=== PATIENT | female | born 1945 | race Caucasian/White ===

== ENCOUNTER → 2018-02-01 08:56 | Outpatient (CLI) | payer MEDICARE, OTHER, SELFPAY ==
[2018-02-01 14:10] LABS: Basophils % 0.4 % (0.1-2.0); Eosinophils # 0.1 K/mm3 (0.0-0.4); Eosinophils % 1.3 % (0.1-12.0); Hemoglobin 12.5 g/dL (12.2-16.2); Lymphocytes # 1.7 K/mm3 (0.7-4.5); Lymphocytes % 19.6 K/mm3 (10-50); Mean Corpuscular HGB Conc 29.9 g/dL (31.8-35.4); Mean Corpuscular Hemoglobin 27.2 pg (27.0-31.2); Mean Corpuscular Volume 90.9 fl (81-99); Mean Platelet Volume 8.6 fl (7.4-10.4); Monocytes # 0.6 K/mm3 (0.1-1.0); Monocytes % 6.3 % (1.7-9.3); Neutrophils # 6.4 K/mm3 (1.8-7.8); Neutrophils % 72.4 % (37.0-80.0); Platelet Count 280 K/mm3 (142-424); Red Blood Count 4.62 M/mm3 (4.20-5.40); Red Cell Distribution Width 15.4 % (11.5-17.5); White Blood Count 8.8 K/mm3 (4.8-10.8)
[2018-02-01 14:18] LABS: Hemoglobin A1C 7.6 % (0.0-7.0)
[2018-02-01 14:31] LABS: Alanine Aminotransferase 15 U/L (12-78); Albumin Level 3.4 gm/dL (3.4-5.0); Alkaline Phosphatase 91 U/L (46-116); Anion Gap 12.2 mEq/L (5-15); Aspartate Amino Transferase 16 U/L (15-37); Bilirubin,Total 0.5 mg/dL (0.2-1.0); Blood Urea Nitrogen 37 mg/dL (7-18); Calcium 9.2 mg/dL (8.5-10.1); Carbon Dioxide 31 mmol/L (21.0-32.0); Chloride 105 mmol/L (98-107); Chol/HDL Ratio 2.5 (1-3.5); Cholesterol 118 mg/dL (140-200); Creatinine,Serum 1.68 mg/dL (0.55-1.02); Estimated Glomerular Filt Rate 30 ml/min (>60); GFR (African American) 36 ML/MIN (>60); Globulin 3.4 gm/dl (1.3-3.2); Glucose 125 mg/dL (74-106); HDL Cholesterol 48 mg/dL (29-89); LDL Cholesterol 45 mg/dL (0-130); Potassium 4.2 mmoL/L (3.5-5.1); Sodium 144 mmol/L (136-145); Total Protein,Serum 6.8 gm/dL (6.4-8.2); Triglycerides 126 mg/dL (30-200); VLDL Cholesterol 25 mg/dL (0-40)
== END ==
PROVIDERS: PCP Internal Medicine Adolescent Medicine; Visit Provider Internal Medicine Adolescent Medicine
DX: N18.1 Chronic kidney disease, stage 1 (principal); E11.9 Type 2 diabetes mellitus without complications
CPT/HCPCS: 36415; 80053; 80061; 83036; 85025

== ENCOUNTER → 2018-06-17 09:01 | Outpatient (CLI) | payer MEDICARE, MEDICAID, SELFPAY ==
--- NOTE | 2018-06-17 09:06 | XR_ITS ---
XR DEXA axial skeleton HISTORY: ITS.REASON: POST MENOPAUSAL ORDERING PHYSICIAN: Sanket Molina MD PATIENT AGE: 73 years COMPARISON: 04/23/2011 FINDINGS: The BMD measured at the Right femoral neck is 0.779 g/cm squared with a T score of -1.9 . This is considered Osteopenic according to the World Health Organization criteria. Fracture risk is Moderate. Treatment is advised. The L1 L4 density has T score 2.4 which is increased by 13% compared to the previous study. The hip density has decreased by 16% compared with previous. There is severe sclerosis involving the interpedicular/facet region on the left at L3-L4. This could be arthritic in nature or due to blastic lesion. Plain films of the lumbar spine may be of further value IMPRESSION: 1. Osteopenia with moderate fracture risk. Treatment suggested. Recommend follow-up exam May 2020 2. Facet sclerosis versus blastic lesion of the pedicle at L1 3 on the left. Recommend lumbar spine films further evaluation
== END ==
PROVIDERS: Family Provider Internal Medicine Adolescent Medicine; PCP Internal Medicine Adolescent Medicine; Visit Provider Internal Medicine Adolescent Medicine
DX: Z13.820 Encounter for screening for osteoporosis (principal); Z78.0 Asymptomatic menopausal state
CPT/HCPCS: 77080

== ENCOUNTER → 2020-02-07 13:17 | Outpatient (CLI) | payer MEDICARE, MEDICAID, OTHER, SELFPAY ==
--- NOTE | 2020-02-07 | CA_ITS ---
APPROVED REPORT Bilateral Lower Extremity Venous Study for DVT. Placement Assistant: CT Indications Risk Factors Obesity Medications Aspirin Eliquis Vein Imaging CFV (R): compressive, spontaneous, phasic, augmentation SFJ (R): compressive, spontaneous, phasic, augmentation FEM (R): compressive, spontaneous, phasic, augmentation POP (R): compressive, spontaneous, phasic, augmentation DFV (R): compressive, spontaneous, phasic, augmentation PTV (R): compressive, spontaneous, phasic, augmentation GSV (R): compressive, spontaneous, phasic, augmentation SSV (R): Not Visualized Peroneals (R):Not Visualized GAS (R): compressive, spontaneous, phasic, augmentation Findings RLE negative for DVT/SVT. Vessels compressible. Difficult exam. Conclusion No evidence of DVT or superficial thrombophlebitis in the veins scanned of the right lower extremity. Mild subq edema Electronically signed by : Samir Borges MD 02/07/2020 20:17:26
--- NOTE | 2020-02-07 13:39 | XR_ITS ---
PROCEDURE: XR FOOT RT MIN 3V CLINICAL INDICATION: RT FOOT PAIN COMPARISON: No exams were available for comparison FINDINGS: No fracture or dislocation. No lytic or blastic change. There is normal mineralization. Osteoarthritic changes are present at the navicular cuneiform joint with subarticular cystic changes. There is mild osteoarthritis also of the metatarsal tarsal joints 1 through 5 and of the cuboid lateral cuneiform joint. There is a fairly prominent calcaneal spur. Generalized vascular calcification is noted in there is an enthesophyte at the Achilles insertion. Mild osteoarthritic changes are present at the 1st MTP joint IMPRESSION: OSTEOARTHRITIC CHANGES DESCRIBED ABOVE Dictated by: Samir Borges MD 02/07/2020 17:06 Electronically signed by Samir Borges MD in [place] 02/07/2020 17:06
[2020-02-07 13:55] LABS: Chloride 104 mmol/L (98-107); Sodium 142 mmol/L (136-145)
[2020-02-07 13:56] LABS: Potassium 4.5 mmoL/L (3.5-5.1)
[2020-02-07 13:58] LABS: Alanine Aminotransferase 11 U/L (12-78); Alkaline Phosphatase 87 U/L (38-126); Anion Gap 11.5 mEq/L (5-15); Aspartate Amino Transferase 22 U/L (14-36); Bilirubin,Total 0.5 mg/dl (0.2-1.3); Blood Urea Nitrogen 26 mg/dl (7-17); Carbon Dioxide 31 mmol/L (22.0-30.0); Estimated Glomerular Filt Rate 31 ml/min (>60); GFR (African American) 38 ML/MIN (>60)
[2020-02-07 13:59] LABS: Albumin Level 3.8 g/dl (3.5-5.0); Albumin/Globulin Ratio 1.4 (1.1-1.8); Calcium 9.2 mg/dl (8.4-10.2); Globulin 2.8 g/dL (1.3-3.2); Glucose 175 mg/dl (74-100); Total Protein,Serum 6.6 g/dl (6.3-8.2)
[2020-02-07 14:16] LABS: Basophils % 0.4 % (0.1-2.0); Eosinophils % 0.4 % (0.1-12.0); Hematocrit 40.4 % (37.0-47.0); Hemoglobin 12.4 g/dL (12.2-16.2); Lymphocytes # 1.2 K/mm3 (0.7-4.5); Lymphocytes % 16.5 % (10-50); Mean Corpuscular HGB Conc 30.6 g/dL (31.8-35.4); Mean Corpuscular Volume 88.4 fl (81-99); Mean Platelet Volume 7.9 fl (7.4-10.4); Monocytes # 0.5 K/mm3 (0.1-1.0); Monocytes % 6.5 % (1.7-9.3); Neutrophils # 5.3 K/mm3 (1.8-7.8); Neutrophils % 76.3 % (37.0-80.0); Platelet Count 307 K/mm3 (142-424); Red Blood Count 4.57 M/mm3 (4.20-5.40); White Blood Count 6.9 K/mm3 (4.8-10.8)
[2020-02-07 15:56] LABS: Hemoglobin A1C 7.4 % (4.0-6.0)
[2020-02-09 13:14] LABS: Uric Acid 9.1 mg/dl (2.5-6.2)
== END ==
PROVIDERS: PCP Internal Medicine Adolescent Medicine; Visit Provider Internal Medicine Adolescent Medicine
DX: M79.671 Pain in right foot (principal); M79.89 Other specified soft tissue disorders; E11.22 Type 2 diabetes mellitus with diabetic chronic kidney disease; R60.0 Localized edema
CPT/HCPCS: 36415; 73630; 80053; 83036; 83735; 84550; 85025; 93971

== ENCOUNTER → 2020-03-29 08:46 | Outpatient (CLI) | payer MEDICARE, OTHER, MEDICAID, SELFPAY ==
--- NOTE | 2020-03-29 09:06 | US_ITS ---
PROCEDURE: US LIVER CLINICAL INDICATION: PITTING EDEMA,CHRONIC GOUT OF RT ANKLE Liver disease, abdominal distension, decreased appetite COMPARISON: No exams were available for comparison FINDINGS: PANCREAS: Unremarkable. No obvious mass or abnormal fluid collection. No ductal dilatation LIVER: No focal liver lesions demonstrated. Homogeneous echogenicity. No intrahepatic biliary ductal dilatation evident. There is appropriate direction of blood flow within a non dilated portal vein RIGHT KIDNEY: Unremarkable. Normal size and echogenicity. No hydronephrosis GALLBLADDER: No gallstones, gallbladder wall thickening, pericholecystic fluid, or biliary dilatation. IMPRESSION: Unremarkable limited abdominal ultrasound as detailed above Dictated by: Samir Borges MD 03/29/2020 22:49 Electronically signed by Samir Borges MD in [place] 03/29/2020 22:50
[2020-03-29 09:13] LABS: Basophils # 0.1 K/mm3 (0-0.2); Basophils % 0.8 % (0.1-2.0); Eosinophils # 0.1 K/mm3 (0.0-0.4); Eosinophils % 1.6 % (0.1-12.0); Hematocrit 40.7 % (37.0-47.0); Hemoglobin 12.8 g/dL (12.2-16.2); Lymphocytes # 1.6 K/mm3 (0.7-4.5); Lymphocytes % 21.1 % (10-50); Mean Corpuscular HGB Conc 31.5 g/dL (31.8-35.4); Mean Corpuscular Hemoglobin 28.1 pg (27.0-31.2); Mean Corpuscular Volume 89.2 fl (81-99); Monocytes # 0.4 K/mm3 (0.1-1.0); Monocytes % 5.6 % (1.7-9.3); Neutrophils # 5.3 K/mm3 (1.8-7.8); Platelet Count 229 K/mm3 (142-424); Red Blood Count 4.56 M/mm3 (4.20-5.40); White Blood Count 7.5 K/mm3 (4.8-10.8)
[2020-03-29 10:36] LABS: Alanine Aminotransferase 14 U/L (12-78); Albumin Level 3.5 g/dl (3.5-5.0); Albumin/Globulin Ratio 1.3 (1.1-1.8); Alkaline Phosphatase 79 U/L (38-126); Anion Gap 9.1 mEq/L (5-15); Aspartate Amino Transferase 25 U/L (14-36); Bilirubin,Total 0.5 mg/dl (0.2-1.3); Blood Urea Nitrogen 47 mg/dl (7-17); Calcium 8.2 mg/dl (8.4-10.2); Carbon Dioxide 28 mmol/L (22.0-30.0); Chloride 102 mmol/L (98-107); Estimated Glomerular Filt Rate 22 ml/min (>60); GFR (African American) 26 ML/MIN (>60); Globulin 2.7 g/dL (1.3-3.2); Glucose 109 mg/dl (74-100); Potassium 4.1 mmoL/L (3.5-5.1); Sodium 135 mmol/L (136-145); Total Protein,Serum 6.2 g/dl (6.3-8.2)
[2020-03-29 11:36] LABS: Free Thyroxine Index 2.8 ug/dL (5.93-13.13); T4 (Thyroxine) 7.4 ug/dl (5.53-11.0); Triiodothryronine (T3) Uptake 38 % (23.5-40.5)
[2020-03-30 12:06] LABS: Vitamin B12 170 pg/mL (232-1245); Vitamin D 25 Hydroxy 24.2 ng/mL (30.0-100.0)
== END ==
PROVIDERS: PCP Internal Medicine Adolescent Medicine; Visit Provider Internal Medicine Adolescent Medicine
DX: M1A.0710 Idiopathic chronic gout, right ankle and foot, without tophus (tophi) (principal); R41.0 Disorientation, unspecified; R60.9 Edema, unspecified
CPT/HCPCS: 36415; 76705; 80053; 82607; 82652; 83735; 84436; 84443; 84479; 85025

== ENCOUNTER → 2020-03-30 12:07 | Outpatient (CLI) | payer MEDICARE, OTHER, MEDICAID, SELFPAY ==
--- NOTE | 2020-03-30 12:21 | CT_ITS ---
PROCEDURE: CT HEAD/BRAIN WO CON CLINICAL INDICATION: DELIRIA Altered mental status, altered level of consciousness, confusion, disorientation COMPARISON: [facility] CT HEAD W/O CONTRAST from 03/10/2017 TECHNIQUE: Axial images obtained. All CT scans at the facility use one or more dose reduction, viz: automated exposure control, ma/kV adjustment per patient size (including targeted exams where dose is matched to indication, i.e. head), or iterative reconstruction technique. FINDINGS: No midline shift, mass effect, intracranial hemorrhage, hydrocephalus, or extra-axial fluid collection is evident. There is generalized atrophy with hypoattenuation of the periventricular white matter consistent with microangiopathic changes.. There is an area of decreased attenuation in the left frontal lobe medially similar to the previous exam and could correspond to an area of old infarction. The calvarium has an unremarkable appearance. No mastoid effusion. There is opacification the left maxillary sinus with minimal aeration centrally IMPRESSION: 1. No acute intracranial findings. 2. Left maxillary sinus disease Dictated by: Samir Borges MD 03/30/2020 13:11 Electronically signed by Samir Borges MD in [place] 03/30/2020 13:11
== END ==
PROVIDERS: PCP Internal Medicine Adolescent Medicine; Visit Provider Internal Medicine Adolescent Medicine
DX: R41.0 Disorientation, unspecified (principal)
CPT/HCPCS: 70450

== ENCOUNTER → 2020-05-14 10:52 | Outpatient (CLI) | payer MEDICARE, OTHER, MEDICAID, SELFPAY ==
--- NOTE | 2020-05-14 11:36 | MR_ITS ---
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 Abnormal ct. No injury. Episodes of forgetfulness, confusion, and changes in behavior. Prior ct 03-30-20 COMPARISON: [facility] CT HEAD W/O CONTRAST from 03/10/2017 CT HEAD/BRAIN WO CON from 03/30/2020 TECHNIQUE: Routine multiplanar multi echo sequences are performed without gadolinium enhancement. FINDINGS: No midline shift, mass effect, intracranial hemorrhage, or hydrocephalus. No evidence of acute infarction. The cerebellopontine angles have an unremarkable appearance. Small area of encephalomalacia is present in the left cerebellar hemisphere. There is some scattered slight increased T2 signal within the genesis which may be due to ischemic gliotic change from small vessel disease. There is mild generalized atrophy nonspecific increased signal in the periventricular white matter. There is an old lacunar infarction in the left basal ganglia. There is asymmetric prominence of the temporal horn of the left lateral ventricle anteriorly and may be due to ex vacuo dilatation from underlying encephalomalacia change. Asymmetric T2 hyperintensity noted in the periventricular region in the left frontal lobe suggesting an old small area of infarction. Partial empty sella is noted as a normal variant. The optic chiasm, corpus callosum, and craniocervical junction have an unremarkable appearance. There is moderate mucosal thickening of the left maxillary sinus. IMPRESSION: 1. No acute intracranial findings. 2. 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 3. Left maxillary sinus disease Dictated by: Samir Borges MD 05/15/2020 10:02 Electronically signed by Samir Borges MD in [place] 05/15/2020 10:02
== END ==
PROVIDERS: PCP Internal Medicine Adolescent Medicine; Visit Provider Internal Medicine Adolescent Medicine
DX: R90.89 Other abnormal findings on diagnostic imaging of central nervous system (principal); F01.50 Vascular dementia, unspecified severity, without behavioral disturbance, psychotic disturbance, mood disturbance, and anxiety
CPT/HCPCS: 70551

== ENCOUNTER → 2020-07-24 10:15 | Outpatient (CLI) | payer MEDICARE, OTHER, MEDICAID, SELFPAY | PROVIDERS: Visit Provider Internal Medicine Adolescent Medicine | DX: Z03.818 Encounter for observation for suspected exposure to other biological agents ruled out (principal) | CPT/HCPCS: U0003 ==

== ENCOUNTER 2020-08-18 17:44 | Inpatient (IN) | payer MEDICARE, OTHER, MEDICAID, SELFPAY ==
[2020-08-18] VITALS (12 sets, daily range): BP systolic 115–161; BP diastolic 48–88; PULSE 71–95; RESP 16–20; TEMP 37.9–39.5; O2SAT 86–96; BMI 35.4; BMI 40.2
--- NOTE | 2020-08-18 17:46 | XR_ITS ---
PROCEDURE: XR CHEST PORTABLE CLINICAL HISTORY: fever COMPARISON: CR CXR CHEST(2 VIEWS-NOT PORTABLE) from 05/21/2016 FINDINGS: This is a somewhat poor inspiration. There is postinflammatory scarring in the right perihilar region which was noted on the previous films from 2016. However in addition there are patchy opacities at the right base. This could be due to crowding of vascular markings from the poor inspiration but a minimal pneumonic infiltrate cannot be excluded. The right upper lung field and left lung brandt are clear. There is stable generalized cardiomegaly with left ventricular prominence but there is no pulmonary congestion and there is no pleural fluid. IMPRESSION: Possible right lower lobe bronchopneumonia versus crowding of markings from poor inspiration Dictated by: Dr. Win Winters MD 08/19/2020 08:41 Dr. Win Winters MD in [place] 08/19/2020 08:41
[2020-08-18 17:59] LABS: Microscopic, Urine URINE MICROSCOPIC (MICROSCOPIC)
--- NOTE | 2020-08-18 18:01 | PC.NURSE ---
HU HARO speaking pt daughter at this time.
[2020-08-18 18:03] LABS: Appearance,Urine CLEAR (Clear); Basophils % 0.5 % (0.1-2.0); Bilirubin,Urine Negative (Negative); Blood, Urine 1+ (Negative); Color,Urine YELLOW (Yellow); Eosinophils % 0.3 % (0.1-12.0); Glucose,Urine (UA) Negative (Negative); Hematocrit 42.9 % (37.0-47.0); Hemoglobin 13.4 g/dL (12.2-16.2); Ketones,Urine Negative (Negative); Leukocyte Esterase,Urine Negative (Negative); Lymphocytes # 0.5 K/mm3 (0.7-4.5); Lymphocytes % 7.8 % (10-50); Mean Corpuscular HGB Conc 31.3 g/dL (31.8-35.4); Mean Corpuscular Hemoglobin 28.9 pg (27.0-31.2); Mean Corpuscular Volume 92.3 fl (81-99); Mean Platelet Volume 7.9 fl (7.4-10.4); Monocytes # 0.3 K/mm3 (0.1-1.0); Monocytes % 4.3 % (1.7-9.3); Neutrophils # 5.2 K/mm3 (1.8-7.8); Neutrophils % 87.2 % (37.0-80.0); Nitrate,Urine POSITIVE (Negative); Platelet Count 219 K/mm3 (142-424); Protein,Urine Negative (Negative); Red Blood Count 4.65 M/mm3 (4.20-5.40); Red Cell Distribution Width 16.4 % (11.5-17.5); Urobilinogen,Urine 0.2 EU/dl (0.2)
[2020-08-18 18:04] LABS: Chloride 102 mmol/L (98-107); Sodium 141 mmol/L (136-145)
[2020-08-18 18:05] LABS: MANUAL DIFFERENTIAL MANUAL DIFFERENTIAL (MANUAL DIFF); Potassium 4.5 mmoL/L (3.5-5.1)
[2020-08-18 18:07] LABS: Alanine Aminotransferase 620 U/L (12-78); Albumin Level 3.8 g/dl (3.5-5.0); Albumin/Globulin Ratio 1.2 (1.1-1.8); Alkaline Phosphatase 666 U/L (38-126); Anion Gap 10.5 mEq/L (5-15); Bilirubin,Total 1.6 mg/dl (0.2-1.3); Blood Urea Nitrogen 54 mg/dl (7-17); Carbon Dioxide 33 mmol/L (22.0-30.0); Estimated Glomerular Filt Rate 23 ml/min (>60); GFR (African American) 28 ML/MIN (>60); Globulin 3.2 g/dL (1.3-3.2)
[2020-08-18 18:08] LABS: Calcium 8.7 mg/dl (8.4-10.2); Glucose 98 mg/dl (74-100); Lactic Acid 1.3 mmol/L (0.7-2.1)
--- NOTE | 2020-08-18 18:12 | PC.NURSE ---
asked ER MD about CT scan of head on pt, ER MD stated not at this time will continue to monitor.
--- NOTE | 2020-08-18 18:12 | HMH.EDGENADL ---
ED Disposition Condition on Discharge: Critical - Critical Care Critical Care Time: Yes Total Critical Care Time: 30 Vital system(s) involved:: Circulatory Failure, Central Nervous System, Metabolic Failure, Respiratory Failure, Renal Failure My critical care processes included: Assessment & monitoring of V/S, Initial and Re-exams, Data Review/Interpretation, Coordinating Care, Medication Orders and management, Documentation <Moy Wise - Last Filed: 08/18/20 20:16> <Moy Aguayo - Last Filed: 08/18/20 21:48> Clinical Impression: Transaminitis, Acute UTI Cholecystitis with cholelithiasis Qualifiers: Cholelithiasis location: gallbladder Cholecystitis acuity: acute Biliary obstruction: with biliary obstruction Qualified Code(s): K80.01 - Calculus of gallbladder with acute cholecystitis with obstruction Right lower lobe pneumonia Qualifiers: Pneumonia type: due to unspecified organism Qualified Code(s): J18.9 - Pneumonia, unspecified organism Acute kidney failure Qualifiers: Acute renal failure type: with acute tubular necrosis Qualified Code(s): N17.0 - Acute kidney failure with tubular necrosis Disposition: Admitted as Observation Instructions: DI for Altered Mental Status Referrals: PCP,No [Non-Staff] - Attestation: On 08/18/20, the high probability of a clinically significant, sudden or life threatening deterioration of the following system(s) required my full and direct attention, intervention and personal management. The time I documented below is in addition to time spent performing reported procedures but includes the following listed in this critical care notation. Medical Decision Making - Medical Records Medical records reviewed: Yes: I reviewed the patient's medical records. - Hung Inquiry Pt receiving controlled substance: No - Lab Data Result diagrams: 08/18/20 17:50 08/18/20 17:50 - Radiology Data #1 Image(s): Chest Image Reviewed: Yes I reviewed the patient's radiology results, Yes I reviewed the patient's radiology image - CT Data CT Scan: Abdomen, Pelvis Time Received: 20:[address] Reviewed: Yes: I have reviewed the patient's CT results, I have viewed the radiologist's interpretation - ECG Data Tracing #1 ECG initial impression date: 08/18/20 ECG initial impression time: 17:47 - Reevaluation(s) Time: 20:17 <Moy Wise - Last Filed: 08/18/20 20:16> - Lab Data Result diagrams: 08/18/20 17:50 08/18/20 17:50 - US Data US Images: Gallbladder - Physician Consults Physician Consulted: Surgery - [facility] Time: 20:56 Reason -: Surgical Eval/Care Comment/Response: Dr. Mathew at [facility]: States ERCP is not available at that facility, deferred to [facility]. Dr. Dial at [facility]: States ERCP is not available at that facility until Thursday. She does not feel comfortable admitting the patient care with possible ascending cholangitis, feels she needs ERCP/decompression more urgently than Thursday. Transfer center is to contact hospitalist and gastroenterology at [facility] to see if they would be available for ERCP sooner than Thursday. Transfer center spoke with Dr. Cross who refuses to accept the patient, states they did not consult gastroenterology. Additional Consult: [facility] Time: 21:15 Reason -: Transfer to another facilty Comment/Response: States that they are currently full and have no available beds, but will accept patient on their waiting list. Recommends expanding antibiotic coverage with vancomycin and either Zosyn or meropenem. Additional Consult: Time: 21:31 Reason -: Transfer to another facilty Comment/Response: Dr. Fisher - ER. Cannot accept patient. [facility] will contact surgery to see if patient can be accepted since she needs urgent ERCP. Dr. Buckner - surgery. Cannot accept patient for emergency ERCP with a total Bili of only 1.6. Will accept patient, put on list for
[2020-08-18 18:13] LABS: Creatinine Clearance Estimated 32 mL/min (50-200)
[2020-08-18 18:14] LABS: Bacteria,Urine 3+ /lpf
[2020-08-18 18:15] LABS: Anisocytosis 1+; Hypochromasia 3+; Lymphocytes % 8 % (10-50); Macrocytosis 1+; Neutrophils % 79 % (42-76); Platelet Estimate Normal; Total Cells Counted 100
--- NOTE | 2020-08-18 18:26 | US_ITS ---
PROCEDURE: US GALLBLADDER CLINICAL INDICATION: RUQ pain, liver dysfunction COMPARISON: No exams were available for comparison FINDINGS: Pancreas: Unremarkable/Not well seen Liver: Mild diffuse fatty infiltration, there is there are no focal lesions.. Flow is hepatopetal in the nondilated portal vein. Right kidney: The right kidney measures 10.0 x 4.0 by 4.7 cm appears sonographically normal. Gallbladder: The gallbladder somewhat hydropic and there is mild diffuse thickening of the gallbladder wall with very small amount of pericholecystic fluid noted. There are no gallstones seen but there could be a trace amount of biliary sludge. IMPRESSION: Somewhat hydropic appearing gallbladder with trace amount of biliary sludge and acalculus cholecystitis is a possibility, mild diffuse hepatic steatosis Dictated by: Dr. Win Winters MD 08/19/2020 09:48 Dr. Win Winters MD in [place] 08/19/2020 09:48
--- NOTE | 2020-08-18 18:26 | CT_ITS ---
PROCEDURE: CT ABDOMEN PELVIS WO CON CLINICAL INDICATION: pain And fever COMPARISON: CT ABDPELW/O CT ABD PELVIS W/O CONTRAST from 05/21/2016 TECHNIQUE: Axial images obtained with sagittal and coronal reformats. All CT scans at the facility use one or more dose reduction, viz: automated exposure control, ma/kV adjustment per patient size (including targeted exams where dose is matched to indication, i.e. head), or iterative reconstruction technique. FINDINGS: Lower thorax: There is gross generalized cardiomegaly. There are pacemaker electrodes noted. There is bilateral basilar atelectasis. There is a large hiatal hernia with at least 3/4 of the stomach above the diaphragmatic hiatus on the left side. ABDOMEN: Liver: The liver is normal in size and shows mild overall decreased density consistent with mild fatty infiltration. There are no focal lesions. Gallbladder: The gallbladder somewhat hydropic with no obvious gallstones, however there is moderate common bile duct dilatation. Pancreas: No masses or peripancreatic fluid collections. Spleen: The spleen is normal in size and shows several tiny calcified granulomata. Adrenals: unremarkable Kidneys/ureters: The kidneys are lower limits of normal in size and no calculi and there is no obstructive uropathy. There is mild stranding of Gerotas' fascia around both kidneys more prominent right side than left. ABDOMEN & PELVIS: Stomach bowel: Only the antrum of the stomach is below the left hemidiaphragm, the duodenal sweep appears normal. The small bowel is unremarkable. The appendix is normal. There is a large amount of stool in the ascending,transverse and proximal descending colon. There is diffuse diverticulosis of the lower descending and sigmoid colon but there is no evidence of diverticulitis. Peritoneum: No abnormal fluid collections. No obvious inflammatory changes. No free air. Lymph nodes: No enlarged lymph nodes apparent. Vasculature: There is diffuse arthrosclerotic calcification of the abdominal aorta and there is marked arteriosclerotic calcification of the celiac and splenic arteries. Bones: There mild to moderate multilevel degenerate changes of the thoracic and lumbar spine. There is multilevel vacuum phenomena of the lumbar discs. PELVIS: Reproductive: The uterus is normal in size with multiple calcifications likely fibroids. Bladder: Urinary bladder is moderately distended with urine and appears normal, there is no free fluid in the pelvis. Appendix: Unremarkable. No distention or periappendiceal phlegmonous change. IMPRESSION: 1. Primarily intrathoracic stomach without evidence of organomegaly or volvulus secondary to a large hiatal hernia 2. Somewhat hydropic appearing gallbladder with no obvious stones but this finding along with dilated common bile duct suggest the possibility of cholecystitis and recommend follow-up ultrasound right upper quadrant. 3. Diverticulosis lower descending and sigmoid colon without diverticulitis Dictated by: Dr. Win Winters MD 08/19/2020 09:41 Dr. Win Winters MD in [place] 08/19/2020 09:41
[2020-08-18 18:31] LABS: ABG Base Excess -3.4 mmol/L (-2.4-2.3); ABG HCO3 21.4 mmhg (22.0-26.0); ABG Oxygen Saturation 94 % (90-100); ABG PCO2 35.5 mmhg (35.0-45.0); ABG PO2 74.4 mmhg (80-100); ABG TCO2 22.5 mmhg (23-27); Allen's Test Y; Oxygen 2 %; Source R/R
--- NOTE | 2020-08-18 18:32 | PC.NURSE ---
pt is more alert at this time, pt sitting up in bed, more conversational than during triage, pt able to answer simple questions. Pt denies presence of pain. Pt daughter at BS. Will continue to monitor.
[2020-08-18 18:50] LABS: Activated Partial Thrombo Time 25.5 seconds (23.6-34.0); INR 1.08 (0.9-1.1)
--- NOTE | 2020-08-18 19:05 | PC.NURSE ---
critical results r/t AST relayed to ER MD, greater than 1500, stated they will dilute it and rerun it.
--- NOTE | 2020-08-18 19:07 | PC.NURSE ---
pt in CT
[2020-08-18 19:15] LABS: Coronavirus 19 IgG Antibody Negative (Negative); Coronavirus 19 IgM Antibody Negative (Negative)
--- NOTE | 2020-08-18 19:15 | PC.NURSE ---
shift change report given to monique nunes at this time
[2020-08-18 19:16] LABS: Troponin I < 0.01 ng/ml (0.00-0.034)
--- NOTE | 2020-08-18 19:55 | PC.NURSE ---
[facility] on diversion at this time. Calling [facility] at this time checking availability.
--- NOTE | 2020-08-18 20:00 | PC.NURSE ---
Addendum entered by Jeannine Lyn, DANIELLA 08/18/20 20:04: *Will be dr padilla Original Note: Hospitalist to call from [facility] calling to speak with dr Wise at this time
--- NOTE | 2020-08-18 20:04 | PC.NURSE ---
Calling [facility] at this time to check status of bed availability
--- NOTE | 2020-08-18 20:05 | PC.NURSE ---
[facility] stated they would call back
[2020-08-18 20:09] LABS: Lipase 126 U/L (23-300)
--- NOTE | 2020-08-18 20:30 | PC.NURSE ---
[facility] stated they are not accepting pt at this time. 2034- Dr be at [facility] accepted patient and pt has been put on a waiting list
--- NOTE | 2020-08-18 21:18 | PC.NURSE ---
Per , be contacted again to talk to the hospitalist
[2020-08-18 21:33] LABS: Acetaminophen < 10 ug/ml (10-30)
--- NOTE | 2020-08-18 21:39 | PC.NURSE ---
Addendum entered by DANIELLA Peralta 08/18/20 21:41: Clarification: [facility] states they can not accept pt as an ER patient due to diversion. However, they will accept pt as a surgical patient. They do not have bed availability at this time but they recommend the patient be admitted here and they would have a bed within 24 hours. Original Note: spoke with who stated pt is not critial enough to be accepted due to diversion
--- NOTE | 2020-08-18 21:44 | PC.NURSE ---
speaking with dr sanches at this time
--- NOTE | 2020-08-18 21:46 | PC.NURSE ---
Tracy agreed to admit
--- NOTE | 2020-08-18 22:28 | PC.NURSE ---
PAGED PHARMACY TAXI DANCER
[2020-08-18 22:31] LABS: Troponin I 0.02 ng/ml (0.00-0.034)
--- NOTE | 2020-08-18 23:05 | PC.NURSE ---
This RN spoke w/ Andreea,pharmacist for vanc dosing. Orders given for 1750mg Q36H.
--- NOTE | 2020-08-18 23:48 | SUR.OPER ---
called [facility] for bed update per family request. No bed is available at this time per caty at the transfer center.
[2020-08-19 00:05] VITALS: BP 100/56; PULSE 67; RESP 16; TEMP 36.8; O2SAT 97
--- NOTE | 2020-08-19 00:06 | PC.NURSE ---
PT ARRIVED TO THE FLOOR VIA STRETCHER FROM ED AT 0005
[2020-08-19 00:17] VITALS: BP 142/58; PULSE 71; RESP 18; TEMP 37.6; O2SAT 94
[2020-08-19 00:55] VITALS: PULSE 70
--- NOTE | 2020-08-19 02:05 | PC.NURSE ---
Pt arrived to floor at 0005. [facility] called while in route to transport pt to room. Karina Germán was given report after stating that bed was available. Tracy gave DC order. Family of pt and pt was notified of bed available at . [facility]. Left floor at 0205.
--- NOTE | 2020-08-19 17:46 | ECG_ITS ---
APPROVED REPORT Exam: Resting ECG HR:91 bpm ECG Measurements Heart Rate 91 AXES CA 250 P 7 QRSd 78 QRS 72 QT 350 T 105 QTc 430 Conclusion Sinus rhythm with 1st degree AV block with premature supraventricular complexes Low voltage QRS Motion artifact Abnormal ECG Electronically signed by : Jimmy Dunlap, 08/24/2020 11:39:19
[2020-08-20 15:15] LABS: Aspartate Amino Transferase 1849 U/L (14-36)
--- NOTE | 2020-08-23 09:40 | HMH.HPDC ---
General - General Admission date:: 08/19/20 Discharge date: 08/20/20 *Admission Date: 08/19/20 *Chief complaint: Probable ascending cholangitis *History of present illness: Patient admitted through ER while awaiting transfer for [facility]. After 2 hours on the floor in the middle the night a bed was available and patient was transferred. I did not see or examine the patient. [facility] History Medical History: Reports:: Arrhythmia, Atrial Fibrillation, Diabetes Mellitus Type 2, Hyperlipidemia, Hypertension *Have you ever received a pneumonia vaccine?: No *Have you received a flu vaccine this season?: No Other Medical History: Reports: Hypothyroidism Other Surgeries: Yes: Coronary Stent - *Social History Smoking Status: Unknown if ever smoked Alcohol Intake: never *Occupational Status:: retired *Travel in the last 8 weeks: None Family Hx:: Diabetes, Hyperlipidemia, Hypertension, Thyroid Disorder Review of Systems - Review of Systems Review of systems:: pertinent systems reviewed and negative unless documented below - *Neurologic Reports other (altered mental status) Exam Vital signs and Labs for Last 24 Hours: Temp Pulse Resp BP Pulse Ox 99.7 F H 70 18 142/58 H 97 08/19/20 00:17 08/19/20 00:55 08/19/20 00:17 08/19/20 00:17 08/19/20 00:05 Narrative: Did not see or examine the patient - *Routine HEENT Exam Head: Present: other Eye: Present: other ENT: Present: other - *Routine Respiratory Exam Present: other - *Routine Cardiovascular Exam Present: other - *Routine Abdominal Exam Present: other - Additional findings Additional findings: Physical exam was not performed on this patient as she was transferred before an exam could be completed. DS: Diagnosis - Discharge Diagnosis (1) Cholecystitis with cholelithiasis Status: Acute Discharge Plan - Patient Discharge Instructions ACTIVITY: Continue current activity DIET: NPO Patient Instructions: Pneumonia-Adult, Gallstones, DI for Pneumonia -- Adult, DI for Cholecystitis Forms: Transfer Record - Follow up Plan Disposition: Xfer Short-Term Hosp Home Medications: Home Medications Medication Instructions Recorded Confirmed Type Apixaban [Eliquis 5mg tab] 5 mg PO BID 08/18/20 08/19/20 History Aspirin [Aspirin 81mg chewable 81 mg PO DAILY 08/18/20 08/18/20 History tab] Atorvastatin Calcium [Lipitor 40mg 40 mg PO HS 08/18/20 08/19/20 History Tablet*] Donepezil HCl [Donepezil ODT 5mg] 5 mg PO DAILY 08/18/20 08/19/20 History Furosemide [Lasix 20mg tab] 20 mg PO DAILY 08/18/20 08/18/20 History Gabapentin [Gabapentin 100mg Cap] 200 mg PO DAILY 08/18/20 08/19/20 History Insulin Glargine,Hum.rec.anlog 25 unit SQ DAILY MDD DM 08/18/20 08/18/20 History [Basaglar Jameelpen U-100] Isosorbide Mononitrate [Imdur 60mg 60 mg PO DAILY 08/18/20 08/18/20 History ER tablet] Levothyroxine Sodium 75 mcg PO DAILY 08/18/20 08/19/20 History [Levothyroxine 75mcg (0.075mg) Tab] Losartan Potassium 100 mg PO DAILY 08/18/20 08/19/20 History Omeprazole [Omeprazole 20mg 20 mg PO DAILY 08/18/20 08/19/20 History Capsule] Sitagliptin Phosphate [Januvia 50 mg PO DIRECTED 08/18/20 08/18/20 History 50mg tablet] Sitagliptin Phosphate [Januvia 50 mg PO HS 08/18/20 08/18/20 History 50mg tablet] Sotalol HCl [Sotalol AF] 40 mg PO BID 08/18/20 08/19/20 History Tramadol HCl [Tramadol 50mg 50 mg PO TID PRN 08/18/20 08/19/20 History Tab] allopurinoL [Allopurinol 100mg 100 mg PO DAILY 08/18/20 08/19/20 History tablet] cloNIDine HCL [cloNIDine 0.1mg 0.1 mg PO DAILY 08/18/20 08/19/20 History Tablet] Prescriptions/Medication Reconciliation: No Action Isosorbide Mononitrate [Imdur 60mg ER tablet] 60 mg PO DAILY Aspirin [Aspirin 81mg chewable tab] 81 mg PO DAILY Levothyroxine Sodium [Levothyroxine 75mcg (0.075mg) Tab] 75 mcg PO DAILY Atorvastatin Calcium [
== END 2020-08-19 02:05 | disposition short-term general hospital (02) | DRG 444 ==
LOC: ER 21:48 → 2ND 08-19 00:22
PROVIDERS: Emergency Medicine; Admitting Provider Internal Medicine Adolescent Medicine; Emergency Provider Emergency Medicine; PCP Internal Medicine Adolescent Medicine; Visit Provider Internal Medicine Adolescent Medicine
DX: K80.00 Calculus of gallbladder with acute cholecystitis without obstruction (principal); N17.0 Acute kidney failure with tubular necrosis; I48.91 Unspecified atrial fibrillation; I10 Essential (primary) hypertension; E11.9 Type 2 diabetes mellitus without complications; E03.9 Hypothyroidism, unspecified; E78.5 Hyperlipidemia, unspecified
CPT/HCPCS: 36415; 71045; 74176; 76705; 80053; 80329; 81001; 82803; 83605; 83690; 84484; 85007; 85025; 85610; 85730; 86328; 87040; 87077; 87086; 87088; 87186; 87275; 87276; 93005; 96365; 96367; 96375; 99282; J2543; J3370

== ENCOUNTER 2020-08-29 15:53 | Outpatient (CLI) | payer MEDICARE, OTHER, MEDICAID, SELFPAY ==
[2020-08-29] VITALS (12 sets, daily range): BP systolic 92–179; BP diastolic 45–74; PULSE 57–66; RESP 16–18; TEMP 36.4–36.8; O2SAT 90–96; BMI 35.6
[2020-08-30] VITALS (12 sets, daily range): BP systolic 120–172; BP diastolic 47–82; PULSE 58–63; RESP 17–19; TEMP 36.4–36.9; O2SAT 90–95
--- NOTE | 2020-08-30 02:40 | PC.NURSE ---
2328 first unit of blood completed with no s/s of transfusion reaction
--- NOTE | 2020-08-30 03:39 | PC.NURSE ---
0310 transfusion of 2nd unit complete, no s/s of transfusion reaction
[2020-08-30 04:25] LABS: Hematocrit 33.6 % (37.0-47.0); Hemoglobin 10.3 g/dL (12.2-16.2)
== END 2020-08-30 04:35 | disposition home or self-care (01) ==
PROVIDERS: PCP Internal Medicine Adolescent Medicine; Visit Provider Internal Medicine Adolescent Medicine
DX: D64.9 Anemia, unspecified (principal)
CPT/HCPCS: 36430; 85014; 85018; 86850; P9016

== ENCOUNTER 2020-10-14 15:43 | Emergency (ER) | payer MEDICARE, OTHER, MEDICAID, SELFPAY ==
[2020-10-14 15:44] VITALS: BP 178/77; PULSE 68; RESP 18; TEMP 37; O2SAT 98; BMI 34.7
--- NOTE | 2020-10-14 15:56 | CT_ITS ---
PROCEDURE: CT HEAD/BRAIN WO CON CLINICAL INDICATION: HEAD INJURY Head injury with headache/pain, contusion, abrasion or hematoma COMPARISON: CT CT HEAD/BRAIN WO CON from 03/30/2020 TECHNIQUE: Axial images obtained. All CT scans at the facility use one or more dose reduction, viz: automated exposure control, ma/kV adjustment per patient size (including targeted exams where dose is matched to indication, i.e. head), or iterative reconstruction technique. FINDINGS: No midline shift or mass effect. Series 2, image 16 demonstrates a 1.4 cm focus of increased density in the anterior right frontal region. This may be due to volume averaging with the adjacent bone versus a small focus of subarachnoid/intraparenchymal hemorrhage. Short-term follow-up with helical imaging may be of further value. Periventricular white matter ischemic changes are present along with encephalomalacia in the left temporal lobe anteriorly. Left frontal scalp hematoma with soft tissue gas and skin clips noted. There is moderate thickening of the maxillary sinus on the left and mild mucosal thickening of the ethmoid sinuses. IMPRESSION: Volume averaging artifact versus small area of intraparenchymal/subarachnoid hemorrhage in the right frontal area. Follow-up with helical imaging may provide further evaluation. Left frontal scalp hematoma Dictated by: Samir Borges MD 10/14/2020 23:59 Samir Borges MD in [place] 10/14/2020 23:59
--- NOTE | 2020-10-14 16:27 | HMH.EDWNDL ---
ED Disposition Clinical Impression: Laceration Disposition: Home, Self-Care Condition on Discharge: Good Instructions: DI for Laceration Repair Additional Instructions: Patient and family declined follow-up computed tomography exam within 4 to 6 hours and would rather watch acutely for signs/symptoms at home and return to the ED despite medical recommendations from radiology. Referrals: Sanket Molina MD [Primary Care Provider] - - Critical Care Critical Care Time: No Attestation: On 10/14/20, the high probability of a clinically significant, sudden or life threatening deterioration of the following system(s) required my full and direct attention, intervention and personal management. The time I documented below is in addition to time spent performing reported procedures but includes the following listed in this critical care notation. Medical Decision Making - Medical Records Medical records reviewed: Yes: I reviewed the patient's medical records. - Hung Inquiry Pt receiving controlled substance: No Vital Signs: 10/14/20 15:44 10/14/20 17:04 Temperature 98.6 F Temperature Source Oral Pulse Rate [Radial] 68 69 Respiratory Rate 18 Blood Pressure [Right Arm] 178/77 H 170/73 H Blood Pressure Mean [Right Arm] 110 105 Blood Pressure Source [Right Arm] Automatic Cuff Blood Pressure Position [Right Arm] Sitting 02 Sat by Pulse Oximetry 98 96 Oxygen Delivery Method Room Air Orders (Tests/Meds): ORDERS Category Date Time Status CT head/brain wo con Stat Cat Scan 10/14/20 15:56 Taken - CT Data CT Scan: Head Time Received: 17:[address] Reviewed: Yes: I have reviewed the patient's CT results, I discussed the CT results w/the radiologist, I have viewed the radiologist's interpretation Findings Narrative: Series 2 image 16 demonstrates 1.4 cm focus of increased density in the anterior right frontal region which could represent volume averaging with adjacent bone or small focus of intraparenchymal/subarachnoid hemorrhage. Short-term follow-up imaging could be considered. Wound/Laceration HPI - General Chief Complaint: Wound/Laceration Stated Complaint: AO 10/14@1515@home fell hit head Time Seen by Provider: 10/14/20 16:00 Mode of Arrival: Ambulatory Limitations: No Limitations Description of Symptoms (Recalled from ER Triage Doc. by RN): TO ED PER [employer] REPORTS GETTING OUT OF CHAIR LOST HER BALANCE, FELL HITTING HEAD ON ANOTHER CHAIR. LAC TO LT SIDE SCALP. DENIES ANY LOC - History of Present Illness HPI narrative: This is a 75-year-old female who presents after sustaining mechanical fall at home and sustaining laceration to the anterior scalp and forehead. No loss of consciousness however patient does take novel anticoagulant due to A. fib. Bleeding controlled prior to arrival. No current pain or confusion. No focal neurologic deficits per the patient. No nausea or vomiting. No other complaints. - Related Data Home Medications Medication Instructions Recorded Confirmed Apixaban [Eliquis 5mg tab] 5 mg PO BID 08/18/20 08/19/20 Aspirin [Aspirin 81mg chewable 81 mg PO DAILY 08/18/20 08/18/20 tab] Atorvastatin Calcium [Lipitor 40mg 40 mg PO HS 08/18/20 08/19/20 Tablet*] Donepezil HCl [Donepezil ODT 5mg] 5 mg PO DAILY 08/18/20 08/19/20 Furosemide [Lasix 20mg tab] 20 mg PO DAILY 08/18/20 08/18/20 Gabapentin [Gabapentin 100mg Cap] 200 mg PO DAILY 08/18/20 08/19/20 Insulin Glargine,Hum.rec.anlog 25 unit SQ DAILY MDD DM 08/18/20 08/18/20 [Basaglar Prashant U-100] Isosorbide Mononitrate [Imdur 60mg 60 mg PO DAILY 08/18/20 08/18/20 ER tablet] Levothyroxine Sodium 75 mcg PO DAILY 08/18/20 08/19/20 [Levothyroxine 75mcg (0.075mg) Tab] Losartan Potassium 100 mg PO DAILY 08/18/20 08/19/20 Omeprazole [Omeprazole 20mg 20 mg PO DAILY 08/18/20 08/19/20 Capsule] Sitagliptin Phosphate [Januvia 50 mg PO DIRECTED 08/18/20 08/18/20 50mg tablet] Latonia
[2020-10-14 17:04] VITALS: BP 170/73; PULSE 69; O2SAT 96
[2020-10-14 17:41] VITALS: BP 132/74; PULSE 78; RESP 16; TEMP 36.6; O2SAT 98
== END 2020-10-14 17:43 | disposition home or self-care (01) ==
PROVIDERS: Emergency Provider Emergency Medicine; PCP Internal Medicine Adolescent Medicine
DX: S01.01XA Laceration without foreign body of scalp, initial encounter (principal); W07.XXXA Fall from chair, initial encounter; Y92.019 Unspecified place in single-family (private) house as the place of occurrence of the external cause; I48.91 Unspecified atrial fibrillation; E11.9 Type 2 diabetes mellitus without complications; E78.5 Hyperlipidemia, unspecified; I10 Essential (primary) hypertension; E03.9 Hypothyroidism, unspecified
CPT/HCPCS: 12004; 70450; 99283

== ENCOUNTER → 2020-10-22 13:33 | Outpatient (CLI) | payer MEDICARE, OTHER, MEDICAID, SELFPAY ==
[2020-10-22 14:34] LABS: Chloride 100 mmol/L (98-107); Sodium 137 mmol/L (136-145)
[2020-10-22 14:37] LABS: Blood Urea Nitrogen 73 mg/dl (7-17); Carbon Dioxide 33 mmol/L (22.0-30.0); Estimated Glomerular Filt Rate 17 ml/min (>60); GFR (African American) 21 ML/MIN (>60)
[2020-10-22 14:38] LABS: Glucose 177 mg/dl (74-100)
[2020-10-22 14:56] LABS: Basophils % 0.4 % (0.1-2.0); Eosinophils # 0.1 K/mm3 (0.0-0.4); Eosinophils % 1.4 % (0.1-12.0); Hematocrit 41.3 % (37.0-47.0); Hemoglobin 12.8 g/dL (12.2-16.2); Lymphocytes # 2.4 K/mm3 (0.7-4.5); Lymphocytes % 25.1 % (10-50); Mean Corpuscular Hemoglobin 29.5 pg (27.0-31.2); Mean Corpuscular Volume 95.3 fl (81-99); Monocytes # 0.6 K/mm3 (0.1-1.0); Monocytes % 6.8 % (1.7-9.3); Neutrophils # 6.3 K/mm3 (1.8-7.8); Neutrophils % 66.4 % (37.0-80.0); Platelet Count 254 K/mm3 (142-424); Red Blood Count 4.33 M/mm3 (4.20-5.40); Red Cell Distribution Width 17.4 % (11.5-17.5); White Blood Count 9.4 K/mm3 (4.8-10.8)
== END ==
PROVIDERS: Visit Provider Internal Medicine Adolescent Medicine
DX: S01.01XD Laceration without foreign body of scalp, subsequent encounter (principal)
CPT/HCPCS: 36415; 80048; 85025

== ENCOUNTER 2021-01-06 16:32 | Emergency (ER) | payer MEDICARE, OTHER, MEDICAID, SELFPAY ==
[2021-01-06] VITALS (9 sets, daily range): BP systolic 151–207; BP diastolic 79–135; PULSE 70–83; RESP 16–20; TEMP 36.6–37.3; O2SAT 87–98; BMI 34.9
--- NOTE | 2021-01-06 16:51 | HMH.EDGENADL ---
ED Disposition Clinical Impression: Uncontrolled hypertension, Elevated brain natriuretic peptide (BNP) level, Hiatal hernia Respiratory failure with hypoxia Qualifiers: Chronicity: acute Qualified Code(s): J96.01 - Acute respiratory failure with hypoxia Disposition: Admitted As Inpatient Condition on Discharge: Fair Referrals: Sanket Molina MD [Primary Care Provider] - - Critical Care Critical Care Time: No Attestation: On 01/06/21, the high probability of a clinically significant, sudden or life threatening deterioration of the following system(s) required my full and direct attention, intervention and personal management. The time I documented below is in addition to time spent performing reported procedures but includes the following listed in this critical care notation. Medical Decision Making - Medical Records Medical records reviewed: Yes: I reviewed the patient's medical records. MR Comment: No prior echocardiograms found. - Hung Inquiry Pt receiving controlled substance: No Vital Signs: 01/06/21 16:33 01/06/21 17:19 01/06/21 17:25 Temperature 99.2 F Temperature Source Oral Pulse Rate Pulse Rate [Right Radial] 83 82 Respiratory Rate 18 18 Blood Pressure Blood Pressure [Right Arm] 206/84 H 200/86 H Blood Pressure Mean [Right Arm] 124 124 Blood Pressure Source Blood Pressure Source [Right Arm] Automatic Cuff Blood Pressure Position 02 Sat by Pulse Oximetry 87 L 98 96 Oxygen Delivery Method Room Air Nasal Cannula Nasal Cannula Oxygen Flow Rate (LPM) 2 3 01/06/21 18:15 01/06/21 18:30 01/06/21 18:40 Temperature Temperature Source Pulse Rate Pulse Rate [Right Radial] 80 81 Respiratory Rate 20 18 Blood Pressure Blood Pressure [Right Arm] 192/88 H 157/79 H Blood Pressure Mean [Right Arm] 122 105 Blood Pressure Source Blood Pressure Source [Right Arm] Blood Pressure Position 02 Sat by Pulse Oximetry 98 97 96 Oxygen Delivery Method Nasal Cannula Nasal Cannula Nasal Cannula Oxygen Flow Rate (LPM) 2 2 2 01/06/21 19:31 Temperature 97.8 F Temperature Source Temporal Artery Scan Pulse Rate 70 Pulse Rate [Right Radial] Respiratory Rate 16 Blood Pressure 162/135 H Blood Pressure [Right Arm] Blood Pressure Mean [Right Arm] Blood Pressure Source Automatic Cuff Blood Pressure Source [Right Arm] Blood Pressure Position Sitting 02 Sat by Pulse Oximetry Oxygen Delivery Method Nasal Cannula Oxygen Flow Rate (LPM) 2 - Lab Data Lab Results 01/06/21 16:48: WBC 9.0, RBC 4.18 L, Hgb 12.3, Hct 40.6, MCV 97.2, MCH 29.3, MCHC 30.2 L, RDW 17.5, Plt Count 299, MPV 7.7, Neut % (Auto) 67.4, Lymph % (Auto) 24.9, Edmunds % (Auto) 5.8, Eos % (Auto) 1.3, Baso % (Auto) 0.7, Neut # (Auto) 6.0, Lymph # (Auto) 2.2, Edmunds # (Auto) 0.5, Eos # (Auto) 0.1, Baso # (Auto) 0.1 01/06/21 16:48: Sodium 143, Potassium 5.3 H, Chloride 106, Carbon Dioxide 35 H, Anion Gap 7.3, BUN 46 H, Creatinine 1.90 H, Estimated Creat Clear 35, Estimated GFR 26 L, Est GFR ( Amer) 31 L, Glucose 165 H, Calcium 8.9, Total Bilirubin 0.6, Direct Bilirubin 0.2, Conjugated Bilirubin 0.0, Indirect Bilirubin 0.4, Unconjugated Bilirubin 0.4, AST 27, ALT 14, Alkaline Phosphatase 120, Total Protein 7.1, Albumin 3.7 01/06/21 16:48: Lactate 1.0 01/06/21 16:48: Troponin I < 0.01, NT-Pro-B Natriuret Pep 1090 H Result diagrams: 01/06/21 16:48 01/06/21 16:48 Orders (Tests/Meds): ED MEDICATIONS Discontinued Medications Generic Name Dose Route Start Last Admin Trade Name Ange PRN Reason Stop Dose Admin Clonidine HCl 0.1 mg 01/06/21 17:58 01/06/21 18:06 Clonidine 0.2mg Tablet PO 01/06/21 17:59 0.1 mg ONCE ONE Administration Furosemide 40 mg 01/06/21 19:11 Furosemide 40mg/4ml Vial IV 01/06/21 19:12 ONCE ONE ORDERS Category Date Time Status XR chest portable Stat Exams 01/06/21 17:07 Taken Covid-19 Nasal PCR ([facility]) Routine Lab 01/06/21 18:04 Received Tr
--- NOTE | 2021-01-06 17:07 | XR_ITS ---
PROCEDURE: XR CHEST PORTABLE CLINICAL HISTORY: low SaO2 Low O2 saturation COMPARISON: CR CXR CHEST(2 VIEWS-NOT PORTABLE) from 05/21/[address] ABDOMEN PELVIS WO CON from 08/18/2020 CR XR CHEST PORTABLE from 08/18/2020 FINDINGS: Cardiomegaly without failure. There is a large hernia with atelectatic changes in the left lower lobe. Parenchymal opacity right lower lobe consistent with atelectasis and/or scarring or infiltrate slightly worse compared to the previous exam. Atelectatic change left upper lobe. Degenerative changes noted in the shoulders. Trachea is deviated toward the right. There are low lung volumes which the could somewhat account for this finding however, the degree of inspiration is similar to the previous exam without the tracheal shift. Left paratracheal mass is a consideration. IMPRESSION: 1. Cardiomegaly with large hiatal hernia and atelectatic changes on the left. 2. Tracheal shift toward the right increased from the previous exam raising the suspicion of a left paratracheal mass or aortic aneurysm. Suggest chest CT with contrast for further evaluation. 3. Slight worsening right basilar airspace disease. Dictated by: Samir Borges MD 01/07/2021 05:25 Samir Borges MD in [place] 01/07/2021 05:25
--- NOTE | 2021-01-06 17:07 | ECG_ITS ---
APPROVED REPORT Exam: Resting ECG HR:84 bpm ECG Measurements Heart Rate 84 AXES QRSd 100 QRS 43 QT 398 T 51 QTc 470 Conclusion Atrial fibrillation Anterior infarct, age undetermined Abnormal ECG Electronically signed by : Sanket Molina, 01/07/2021 13:56:44
[2021-01-06 17:15] LABS: Basophils # 0.1 K/mm3 (0-0.2); Basophils % 0.7 % (0.1-2.0); Eosinophils # 0.1 K/mm3 (0.0-0.4); Eosinophils % 1.3 % (0.1-12.0); Hematocrit 40.6 % (37.0-47.0); Hemoglobin 12.3 g/dL (12.2-16.2); Lymphocytes # 2.2 K/mm3 (0.7-4.5); Lymphocytes % 24.9 % (10-50); Mean Corpuscular HGB Conc 30.2 g/dL (31.8-35.4); Mean Corpuscular Hemoglobin 29.3 pg (27.0-31.2); Mean Corpuscular Volume 97.2 fl (81-99); Mean Platelet Volume 7.7 fl (7.4-10.4); Monocytes # 0.5 K/mm3 (0.1-1.0); Monocytes % 5.8 % (1.7-9.3); Neutrophils % 67.4 % (37.0-80.0); Platelet Count 299 K/mm3 (142-424); Red Blood Count 4.18 M/mm3 (4.20-5.40); Red Cell Distribution Width 17.5 % (11.5-17.5)
[2021-01-06 17:17] LABS: Chloride 106 mmol/L (98-107); Potassium 5.3 mmoL/L (3.5-5.1); Sodium 143 mmol/L (136-145)
[2021-01-06 17:20] LABS: Alanine Aminotransferase 14 U/L (12-78); Albumin Level 3.7 g/dl (3.5-5.0); Alkaline Phosphatase 120 U/L (38-126); Anion Gap 7.3 mEq/L (5-15); Aspartate Amino Transferase 27 U/L (14-36); Bilirubin,Direct 0.2 mg/dl (0.0-0.4); Bilirubin,Indirect 0.4 mg/dL (0.0-0.9); Bilirubin,Total 0.6 mg/dl (0.2-1.3); Bilirubin,Unconjugated 0.4 mg/dL (0.0-1.1); Blood Urea Nitrogen 46 mg/dl (7-17); Calcium 8.9 mg/dl (8.4-10.2); Carbon Dioxide 35 mmol/L (22.0-30.0); Creatinine Clearance Estimated 35 mL/min (50-200); Estimated Glomerular Filt Rate 26 ml/min (>60); GFR (African American) 31 ML/MIN (>60); Glucose 165 mg/dl (74-100); Total Protein,Serum 7.1 g/dl (6.3-8.2)
[2021-01-06 18:25] LABS: NT Pro Brain Natriuretic Pep. 1090 pg/mL (0-450)
[2021-01-06 18:30] LABS: Troponin I < 0.01 ng/ml (0.00-0.034)
--- NOTE | 2021-01-06 19:14 | PC.NURSE ---
Pt daughter was asking about visitor policy for admitted pts. Informed her that visiting hours are 9-5 daily for admitted pts. Pt daughter asked is there a way around that? I told her the only circumstance I was aware of was end of life care. Pt daughter states well I need to stay with her, she can't make decisions for herself . Pt daughter states pt get confused and combative at night. Tried to assure pt daughter that staff would keep in contact with her and if pt needed her during the night they would call her. Pt daughter states well either I stay with her or I'm taking her back home with me. Stated to pts daughter that I would have dye house vat worker come down to speak with her related to visitor policy. notified dye house vat worker of above mentioned conversation, states she will be down to speak with pts daughter.
--- NOTE | 2021-01-06 19:22 | PC.NURSE ---
supervisor dimension warehouse at speaking with pts daughter at this time.
--- NOTE | 2021-01-06 19:25 | PC.NURSE ---
shift change report given to manjurn
--- NOTE | 2021-01-06 19:35 | PC.NURSE ---
Received report from day nurse as they are trying to admit patient. house supervisors are at bedside as patient's daughter is extremely upset at this time with the fact she cannot stay overnight due to the visitor policy. patient is currently not causing any behavior issues. daughter insists she will and requires 1-on-1 intervention. both day and night house supervisors attempt to explain to her the policy.
--- NOTE | 2021-01-06 19:40 | PC.NURSE ---
DAUGHTER GOES OUTSIDE TO TALK TO FAMILY. DEMANDS SOMEONE STAYS IN ROOM AT BEDSIDE. DANA,EMT-P STAYS.
--- NOTE | 2021-01-06 19:45 | PC.NURSE ---
[facility] [place] [facility] DISCUSSING SIGNING OUT PATIENT AGAINST MEDICAL ADVICE. PATIENT'S DAUGHTER WHO IS POA AND MAKING DECISION TO TAKE PATIENT, REFUSES TO SIGN AMA. CHASES NURSING STAFF OUT OF ROOM AND FOLLOWS INTO NURSES STATION AND STATES IF YOU THINK SHE CAN STAY HERE SAFELY THEN YOU GET HER TO SIGN IT . WE TOLD HER THAT SHE IS THE ONE MAKING THE DECISION TO REMOVE THE PATIENT FROM CARE THAT SHE NEEDS, AND THE POA SHE IS RESPONSIBLE FOR THAT DECISION. SHE STATES I AM NOT REFUSING TO LET HER BE ADMITTED . I THEN STATED THEN IT'S UP TO YOU, IF YOU WANT US TO GO ON WITH THE ADMISSION PROCESS, THEN LET US KNOW AND WE WILL MOVE FORWARD, AND IF YOU DON'T THEN YOU ARE TAKING HER AGAINST MEDICAL ADVICE . SHE THEN TURNED AROUND, LEFT THE NURSES STATION AND STATED GET IN HERE AND GET HER UNHOOKED OR I WILL . PATIENT THEN WAS REMOVED FROM THE [facility] PER STAFF. DAUGHTER PUT HER IN THE WC WE PROVIDED AND TOOK HER OUT THROUGH THE AMBULANCE BAY DESPITE OUR OBJECTIONS DUE TO SAFETY CONSIDERATIONS.
--- NOTE | 2021-01-06 20:33 | PC.NURSE ---
Late entry: Was called during shift report that the patient's daughter was upset about the visitor policy. Idalia Flores RN and blurb writer came to the ER to talk to her daughter about her concerns. Her daughter wanted to know if she could stay the night with her mother. She stated she wanted to see if there was any way to work around the policy. The patient was sitting in the bed and was calm. She was not attempting to get out of bed and was not pulling at any IVs. She was awake and sitting still in the bed. The patient's daughter stated she was very protective of her mother and that she did not feel she would be safe. The daughter stated that she needed to have her a sitter 24 hours/day or allow her to stay with her. Discussed policy with her and offered to place patient near nurses station, explained that a safety could be set and there were 3 different settings available. Also explained that if the patient became confused that the situation would be assessed and that a sitter could be placed if needed. Explained to the patient's daughter that we would call her if she became confused and was trying to get out of bed. Also explained that if the patient continued to be confused and was not calm with the sitter that we would call her in that situation too. Then the daughter voiced that she was concerned that she wanted to talk to the doctor on rounds. She was offered to sit in the waiting room if it were before visiting hours so the doctor could talk to her there and then if it were visiting hours after their conversation that she could go on to the patient's room or wait in the waiting room until visiting hours. She then stated that she was either staying with her or that she needed to be provided a sitter or she was taking her home. The patient continued to be calm and made no attempts to get out of bed. Attempted again to explain to patient's daughter that the safety measures that would be taken to keep her mother safe. She stated she was taking her home. Her nurse was informed and the doctor was notified.
== END 2021-01-06 20:42 | disposition admitted as inpatient to this hospital (09) ==
PROVIDERS: Emergency Provider Emergency Medicine; PCP Internal Medicine Adolescent Medicine
DX: J96.91 Respiratory failure, unspecified with hypoxia (principal); I50.9 Heart failure, unspecified; K44.9 Diaphragmatic hernia without obstruction or gangrene; I10 Essential (primary) hypertension; F03.90 Unspecified dementia, unspecified severity, without behavioral disturbance, psychotic disturbance, mood disturbance, and anxiety; E03.9 Hypothyroidism, unspecified; E78.5 Hyperlipidemia, unspecified; I48.91 Unspecified atrial fibrillation; E11.9 Type 2 diabetes mellitus without complications; Z79.899 Other long term (current) drug therapy
CPT/HCPCS: 71045; 80048; 80076; 83605; 83880; 84484; 85025; 87040; 93005; 99284; U0003

== ENCOUNTER → 2021-05-28 18:40 | Outpatient (CLI) | payer MEDICARE, OTHER, MEDICAID, SELFPAY | PROVIDERS: Visit Provider Internal Medicine Adolescent Medicine | DX: R50.9 Fever, unspecified (principal) | CPT/HCPCS: 87086; 87088; 87186 ==